=== PATIENT | male | born 1985 ===

== ENCOUNTER 2023-02-26 10:15 | Outpatient (CLI) | payer OTHER, SELFPAY ==
--- NOTE | ~2023-02-26 | MR_ITS ---
MRI of the left thumb CLINICAL HISTORY: Mass TECHNIQUE: Sagittal T1-weighted and T2 fat-sat images, axial T1-weighted and T2 fat-sat images, and c oronal T1-weighted and proton-density fat-sat images were performed. FINDINGS: There is abnormal signal partially imaged in the very distal pole scaphoid pole on axial im ages only, which could reflect subchondral cystic change, but is difficult to evaluate given the limi luis m inclusion [id number]. Remaining visualized bone marrow signals are unremarkable. Visualized philomena int spaces are preserved. There is degenerative signal of the ulnar collateral ligament at the first MCP joint, without evidence of tear. Radial collateral ligament is intact. Collateral ligaments at th e interphalangeal joint of the thumb are intact. No significant joint effusion identified. Along the dorsal aspect of the proximal phalanx of the thumb, superficial to the extensor tendon, the re is a cystic mass with several thin septations measuring approximately 3.5 x 2.1 x 1.0 cm in extent . Flexor tendon is unremarkable. Visualized musculature unremarkable. IMPRESSION: 3.5 x 2.1 x 1.0 cm cystic-appearing mass along the dorsal aspect of the thumb, superficial to the ext ensor tendon. Appearance is suggestive of a ganglion cyst. Postcontrast imaging or ultrasound could b e performed to confirm the cystic nature of the lesion and exclude a cystic-appearing solid mass. Reviewed, dictated and finalized at [facility]. H NP IMPRESSION: 3.5 x 2.1 x 1.0 cm cystic-appearing mass along the dorsal aspect of the thumb, superficial to the extensor tendon. Appearance is suggestive of a ganglion cyst . Postcontrast imaging or ultrasound could be performed to confirm the cystic n ature of the lesion and exclude a cystic-appearing solid mass.
== END 2023-02-26 10:16 ==
PROVIDERS: PCP Orthopaedic Surgery Hand Surgery; Visit Provider Orthopaedic Surgery Hand Surgery
DX: R22.32 Localized swelling, mass and lump, left upper limb (principal)
CPT/HCPCS: 73218